=== PATIENT | male | born 1970 | race Caucasian/White ===

== ENCOUNTER 2025-03-14 16:47 | Emergency (ER) | payer BC | END 2025-03-14 18:26 | disposition home or self-care (01) | LOC: MW.ED 16:47 | DX: S46.912A Strain of unspecified muscle, fascia and tendon at shoulder and upper arm level, left arm, initial encounter (principal); Z75.3 Unavailability and inaccessibility of health-care facilities; Z91.018 Allergy to other foods; Z79.899 Other long term (current) drug therapy; W20.8XXA Other cause of strike by thrown, projected or falling object, initial encounter; Y93.89 Activity, other specified | CPT/HCPCS: 71046; 71046-26; 73030-26-LT; 73030-LT; 99282; 99284 ==